=== PATIENT | female | born 1940 | race Caucasian/White ===

== ENCOUNTER 2023-02-15 01:48 | Emergency (ER) | payer MEDICARE, SELFPAY ==
[2023-02-15 01:53] VITALS: BP 138/76; PULSE 64; RESP 18; TEMP 36.4; O2SAT 97; BMI 25.9
[2023-02-15 02:14] LABS: Basophils Percent Auto 0.4 % (0.2-2.0); Eosinophils Percent Auto 0.1 % (0.9-7.0); Hematocrit 45.2 % (36.0-48.0); Hemoglobin 14.7 g/dL (12.0-16.0); Immature Granulocytes Abs Auto 0.04 10^3/uL (0.00-0.03); Immature Granulocytes Pct Auto 0.4 % (0.0-0.5); Lymphocytes Absolute Auto 1.7 10^3/uL (1.2-3.8); Lymphocytes Percent Auto 16.7 % (20.5-60.0); Mean Corpuscular HGB Conc 32.5 g/dL (29.9-35.2); Mean Corpuscular Hemoglobin 29.5 pg (26.7-34.0); Mean Corpuscular Volume 90.6 fL (81.0-99.0); Monocytes Absolute Auto 0.5 10^3/uL (0.3-0.8); Monocytes Percent Auto 4.6 % (1.7-12.0); Neutrophils Absolute Auto 7.8 10^3/uL (1.4-6.5); Neutrophils Percent Auto 77.8 % (43.0-75.0); Platelet Count 344 10^3/uL (150-450); Red Blood Count 4.99 10^6/uL (4.20-5.40); Red Cell Distribution Width 12.4 % (11.0-15.0)
[2023-02-15 02:23] LABS: Anion Gap 12.4; BUN Creatinine Ratio 18.4; Carbon Dioxide 25.2 mmol/L (21.0-32.0); Chloride 101 mmol/L (98-107); Estimated GFR (African America 56 (>=60); Estimated GFR (Non-African Ame 46 (>=60); Glucose 126 mg/dL (74-106); Potassium 3.6 mmol/L (3.5-5.1); Sodium 135 mmol/L (136-145)
--- NOTE | 2023-02-15 02:29 | CT_ITS ---
The [address] [address] Patient Name: DHEERAJ HERNANDEZ MRN: [id number] date: 1940 Sex: F Assigned Patient Location: ER Current Patient Location: ER Accession/Order Number: [id number] Exam Date: 02/15/2023 02:50 Report Date: 02/15/2023 03:45 At the request of: VANESSA MALIK Procedure: CT lumbar spine wo con EXAM: CT lumbar spine wo con HISTORY: back pain COMPARISON: None. TECHNIQUE: CT of the lumbar spine without IV contrast. FINDINGS: Mild dextroconvex curvature of the lumbar spine. Osteopenic bone density. There is an acute appearing superior endplate compression fracture of the L1 vertebral body with sclerosis noted along the superior endplate and slight wedging of the anterior and posterior vertebral cortex with minimal bony retropulsion. There is approximately 35% loss of height centrally. The remainder of the vertebral body heights are grossly preserved. Posterior elements are intact. Prevertebral soft tissues appear unremarkable. No significant disc herniations/bulges are visualized within the lumbar spine, no evidence for high-grade central canal narrowing. Multilevel facet arthrosis most significant at the L4-L5 and L5-S1 levels. There is mild to moderate bilateral neuroforaminal narrowing at L4-L5. Moderate to severe right and [id number] left neuroforaminal narrowing at L5-S1 CT/CT lumbar spine wo con IMPRESSION: 1. Acute appearing superior endplate compression fracture of the L1 vertebral body with minimal bony retropulsion and approximately 35% loss of height centrally. Electronically authenticated by: FRANTZ UGARTE Date: 02/15/2023 03:45
--- NOTE | 2023-02-15 02:29 | CT_ITS ---
The [facility] [address], [place] [address] Patient Name: DHEERAJ HERNANDEZ MRN: [id number] date: 1940 Sex: F Assigned Patient Location: ER Current Patient Location: Accession/Order Number: [id number] Exam Date: 02/15/2023 02:50 Report Date: 02/15/2023 03:47 At the request of: VANESSA MALIK Procedure: CT abdomen pelvis w con EXAM: CT abdomen pelvis w con HISTORY: left sided flank pain . Left lower back pain and nausea. COMPARISON: CT lumbar spine, 02/15/2023. TECHNIQUE: IV contrast enhanced CT imaging of the abdomen and pelvis was performed using 100 mL of Omnipaque 300 intravenous contrast. Sagittal and coronal reconstructions are provided. Dose reduction techniques were achieved by using automated exposure control and/or adjustment of mA and/or kV according to patient size and/or use of iterative reconstruction technique. FINDINGS: CT ABDOMEN: There is left basilar linear fibrotic scarring. The lung bases are otherwise clear. A trace inferior pericardial effusion is noted. Cardiac size is normal. The liver, gallbladder, pancreas, spleen, and adrenal glands are unremarkable. Bilateral renal peripelvic cysts are present with several small right renal cortical cysts. The kidneys are otherwise unremarkable. The aorta and IVC appear normal. There is a small hiatal hernia. The stomach and small bowel are otherwise unremarkable. There is a small fat-containing umbilical hernia. CT PELVIS: The appendix, pelvic small bowel bowel loops, colon, uterus and decompressed urinary bladder appear unremarkable. No inflammatory fat stranding, free fluid, loculated fluid or free air is seen in the abdomen or pelvis. A mild anterior compression fracture involving the superior endplate of L1 has smooth borders and appears chronic. There is a mild lumbar levoscoliosis. No acute osseous abnormality or suspicious bony lesion is seen. CT/CT abdomen pelvis w con IMPRESSION: No acute findings in the abdomen or pelvis. No specific cause of left-sided flank pain is identified. Please reference today's CT lumbar spine report regarding spinal findings. Electronically authenticated by: DEREK BURGOS Date: 02/15/2023 03:47
[2023-02-15 02:46] LABS: Bilirubin Urine MODERATE (NEGATIVE); Blood Urine TRACE-I (NEGATIVE); Clarity Urine CLEAR (CLEAR); Color Urine DK. YELLOW (YELLOW); Glucose Urine UA NEGATIVE (NEGATIVE); Ketones Urine 15 mg/dL (NEGATIVE); Leukocyte Esterase Urine SMALL (NEGATIVE); Nitrite Urine NEGATIVE (NEGATIVE); Protein Urine 30 mg/dL (NEG/TRACE); Specific Gravity Urine >=1.030 (1.005-1.025); pH Urine 5.5 (5.0-9.0)
[2023-02-15 02:52] LABS: Urine Microscopic Indicated YES
[2023-02-15 02:55] LABS: Bacteria Urine MODERATE #/HPF (NONE SEEN); Cast Seen? NONE SEEN #/LPF (NONE SEEN); Crystals Seen? None Seen #/HPF (None Seen); Mucus Urine SMALL (NONE SEEN); RBC Urine 0-2 #/HPF (0-2); Squamous Epithelial Cell Urine MODERATE #/LPF (NONE/RARE); Urine Culture Indicated YES
--- NOTE | 2023-02-15 02:55 | ED_ITS ---
HPI - General Adult General Chief complaint: Back Pain/Injury Stated complaint: BACK PAIN Time Seen by Provider: 02/15/23 01:57 EST Source: patient Mode of arrival: walk-in Limitations: no limitations History of Present Illness HPI narrative: 82-year-old female emergency department with chief complaint of back pain. Patient reports for the last several days and left side lower back pain. She is unsure exactly what she was doing when it started. There is no injury. No falls. She has never had pain in this region before. Patient reports that she saw her primary care doctor prescribed a steroid pack and told to take naproxen. She reports that the pain worsened prompting her to call back and she was prescribed baclofen which also has not helped. She denies any rash. She denies any fever, sweats, chills. She denies any abdominal pain, nausea, vomiting, diarrhea, blood in the stool. She denies any dysuria, urgency, frequency, hematuria. Related Data Home Medications Medication Instructions Recorded Confirmed baclofen 10 mg tablet 10 mg PO TID 02/15/23 02/15/23 methylprednisolone 4 mg tablets in 4 mg PO DAILY 02/15/23 02/15/23 a dose pack ondansetron HCl 4 mg tablet 4 mg PO DAILY 02/15/23 02/15/23 Previous Rx's Medication Instructions Recorded hydrocodone 5 mg-acetaminophen 325 1 tab PO Q6H PRN pain 3 days #12 02/15/23 mg tablet tabs Allergies Allergy/AdvReac Type Severity Reaction Status Date / Time No Known Drug Allergies Allergy Verified 02/15/23 01:57 EST Review of Systems ROS Status of ROS 10 or more systems reviewed and unremarkable except as noted in history and below Exam Narrative Exam Narrative: VITALS: I have reviewed the triage vital signs. GENERAL: Well developed, well appearing adult in no acute distress. NEURO: Alert and oriented. Moves all extremities. Face is symmetric and expressive. Patellar reflexes brisk and equal bilaterally. Normal gait. Plantar flexion/dorsiflexion, knee flexion/extension, hip flexion/extension are grossly intact with 5/5 strength. Sensation is intact across the bilateral lower extremities. SPINE: No midline cervical, thoracic, or lumbar tenderness. No step-off or deformities. No paraspinal muscle tenderness or increased tone. EYES: PERRL. No scleral icterus or conjunctival injection. No discharge. HENT: Normocephalic, atraumatic. Hearing is grossly intact. Nares grossly patent and without discharge. Mucous membranes moist. NECK: No JVD. Patient moves neck without restriction. CARDIO: Rhythm regular. Normal rate. No murmur, rub, or gallop. Pulses equal bilaterally in the upper and lower extremity. No lower extremity edema. PULM: Lungs clear to auscultation in all govea. No wheezes, rales, or rhonchi. No conversational dyspnea. No splinting, stridor, or accessory muscle use. GI/: Abdomen is soft and non-tender. Normoactive bowel sounds. No flank tenderness. EXTREMITIES: Symmetric muscle bulk. No joint swelling. No clubbing, cyanosis, or deformity. SKIN: Warm and dry. Normal turgor. No rash or lesions appreciated. PSYCH: Mood, affect, and interaction is appropriate to the setting. Constitutional Vital Signs, click to edit/add: Last Vital Signs Temp 97.6 F 02/15/23 01:53 EST Pulse 64 02/15/23 01:53 EST Resp 18 02/15/23 01:53 EST BP 138/76 02/15/23 01:53 EST Pulse Ox 97 02/15/23 01:53 EST O2 Del Method Room Air 02/15/23 01:53 EST Course Vital Signs Vital signs: Vital Signs Temperature 97.6 F 02/15/23 01:53 EST Pulse Rate 64 02/15/23 01:53 EST Respiratory Rate 18 02/15/23 01:53 EST Blood Pressure 138/76 02/15/23 01:53 EST Pulse Oximetry 97 02/15/23 01:53 EST Oxygen Delivery Method Room Air 02/15/23 01:53 EST Temperature 97.6 F 02/15/23 01:53 EST Pulse Rate 64 02/15/23 01:53 EST Respiratory Rate 18 02/15/23 01:53 EST Blood Pressure 138/76 02/15/23 01:53 EST Pulse Oximetry 97 02/15/23 01:53 EST Oxygen Delivery Method Room Air 02/15/23 01:53 EST Medical Decision Making MDM Narrative Medical decision making narrative: 82-year-old female to the emergency Department chief complaint of several days of left-sided lower back pain. Vital stable, patient is afebrile. Neurologic examination is nonfocal. No red flags for cord compressing lesion. She does report the pain is worse when she moves , however the pain is not easily diagnosed by history and physical exam alone. Given lack of response to conservative therapy will proceed with CT imaging of the spine/abdomen. Urinalysis, basic labs. Patient agrees with this plan. She declines any pain medication. Lab work unremarkable. UA not consistent with UTI. CT scan shows L1 mild compression fracture without retropulsion. She is neuro-intact. Minimal symptoms. She can ambulate and care for herself. No indication for emergent spine surgery consult. Findings discussed with patient which I think explain her symptoms well. Irving to go and script. Follow-up with NSG. Follow-up with PCP. Return precautions were discussed, all questions were answered, the patient was discharged home. Medical Records Medical records reviewed: Yes I reviewed the patient's medical records Lab Data Lab results reviewed: Yes I reviewed the patient's lab results Labs: Lab Results 02/15/23 02/15/23 Range/Units 02:08 02:39 WBC 10.0 (4.0-11.0) 10^3/uL RBC 4.99 (4.20-5.40) 10^6/uL Hgb 14.7 (12.0-16.0) g/dL Hct 45.2 (36.0-48.0) % MCV 90.6 (81.0-99.0) fL MCH 29.5 (26.7-34.0) pg MCHC 32.5 (29.9-35.2) g/dL RDW 12.4 (11.0-15.0) % Plt Count 344 (150-450) 10^3/uL MPV 10.0 (9.5-13.5) fL Neut % (Auto) 77.8 H (43.0-75.0) % Lymph % (Auto) 16.7 L (20.5-60.0) % [place] % (Auto) 4.6 (1.7-12.0) % Eos % (Auto) 0.1 L (0.9-7.0) % Baso % (Auto) 0.4 (0.2-2.0) % Neut # (Auto) 7.8 H (1.4-6.5) 10^3/uL Lymph # (Auto) 1.7 (1.2-3.8) 10^3/uL [place] # (Auto) 0.5 (0.3-0.8) 10^3/uL Eos # (Auto) 0.0 (0.0-0.7) 10^3/uL Baso # (Auto) 0.0 (0.0-0.1) 10^3/uL Abs Immat Gran (auto) 0.04 H (0.00-0.03) 10^3/uL Imm/Tot Granulo (auto) 0.4 (0.0-0.5) % Sodium 135 L (136-145) mmol/L Potassium 3.6 (3.5-5.1) mmol/L Chloride 101 (98-107) mmol/L Carbon Dioxide 25.2 (21.0-32.0) mmol/L Anion Gap 12.4 BUN 21.0 H (7.0-18.0) mg/dL Creatinine 1.14 H (0.55-1.02) mg/dL Est GFR ( Amer) 56 L (>=60) Est GFR (Non-Af Amer) 46 L (>=60) BUN/Creatinine Ratio 18.4 Glucose 126 H (74-106) mg/dL Calcium 9.0 (8.5-10.1) mg/dL Urine Color Dk. yellow (YELLOW) Urine Clarity Clear (CLEAR) Urine pH 5.5 (5.0-9.0) Ur Specific Mackey >=1.030 A (1.005-1.025) Urine Protein 30 A (NEG/TRACE) mg/dL Urine Glucose (UA) Negative (NEGATIVE) mg/dL Urine Ketones 15 A (NEGATIVE) mg/dL Urine Occult Blood Trace-i (NEGATIVE) Urine Nitrite Negative (NEGATIVE) Urine Bilirubin Moderate A (NEGATIVE) Urine Urobilinogen 1.0 (0.2-1.0) EU/dL Ur Leukocyte Esterase Small A (NEGATIVE) Urine RBC 0-2 (0-2) #/HPF Urine WBC 5-10 A (NONE SEEN) #/HPF Ur Squamous Epith Cells Moderate A (NONE/RARE) #/LPF Urine Crystals None seen (None Seen) #/HPF Urine Bacteria Moderate A (NONE SEEN) #/HPF Urine Casts None seen (NONE SEEN) #/LPF Urine Mucus Small A (NONE SEEN) Ur Culture Indicated? Yes Imaging Data CT scan - abdomen: Attestation: I have reviewed the pertinent imaging results. Discharge Plan Discharge Chief Complaint: Back Pain/Injury Clinical Impression: Compression fracture Patient Disposition: Home, Self-Care Time of Disposition Decision: 04:06 Condition: Good Mode of Transportation: Private Vehicle Prescriptions / Home Meds: New hydrocodone-acetaminophen 5-325 mg tablet 1 tab PO Q6H PRN (Reason: pain) 3 Days Qty: 12 0RF No Action baclofen 10 mg tablet 10 mg PO TID methylprednisolone 4 mg tablets,dose pack 4 mg PO DAILY ondansetron HCl 4 mg tablet 4 mg PO DAILY Print Language: Hungarian Instructions: Vertebral Compression Fracture (ED) Stand Alone Forms: Portal Instructions Referrals: ABISAI CHRISTIE [Primary Care Provider] - 02/18/23 SUMMER STARKS [Physician] - 1 week (Follow-up to discuss fracture. )
[2023-02-15] MEDS: HYDROCODONE/ACET 5-325 MG TABLET 1 TAB PO (04:15)
== END 2023-02-15 04:33 | disposition home or self-care (01) ==
PROVIDERS: Emergency Provider Student in an Organized Health Care Education/Training Program; PCP Internal Medicine
DX: M48.56XA Collapsed vertebra, not elsewhere classified, lumbar region, initial encounter for fracture (principal); Z79.899 Other long term (current) drug therapy
CPT/HCPCS: 36415; 72131; 74177; 80048; 81001; 85025; 87086; 99285; Q9967

== ENCOUNTER 2023-03-02 07:55 | Outpatient (OUT) | payer MEDICARE, SELFPAY ==
--- NOTE | 2023-03-02 08:00 | NM_ITS ---
The [address] [address] Patient Name: DHEERAJ HERNANDEZ MRN: [id number] date: 1940 Sex: F Assigned Patient Location: [place] Current Patient Location: [place] Accession/Order Number: [id number] Exam Date: 03/02/2023 08:00 Report Date: 03/02/2023 13:20 At the request of: CARLOTA RUANO Procedure: SC bone scan whole body EXAMINATION: SC bone scan whole body HISTORY: LUMBAR PAIN COMPARISON: CT lumbar spine 02/15/2023 TECHNIQUE: After obtaining the patient's consent, 26.2 mCi Technetium 99m MDP was injected intravenously. Images were obtained approximately two hours later. FINDINGS: ABNORMALITIES: Intense band of abnormal activity over approximately L1 vertebral body consistent with suspected superior and plate compression fracture and prior CT study. OTHER: Negative. SC/SC bone scan whole body IMPRESSION: 1. Findings compatible with acute L1 superior endplate fracture. Electronically authenticated by: KATLYN PRICE Date: 03/02/2023 13:20
== END 2023-03-02 07:56 | disposition home or self-care (01) ==
LOC: NM 07:55
PROVIDERS: PCP Internal Medicine; Visit Provider Nurse Practitioner Family
DX: M54.50 Low back pain, unspecified (principal); S32.010A Wedge compression fracture of first lumbar vertebra, initial encounter for closed fracture
CPT/HCPCS: 78306; A9503

== ENCOUNTER 2023-07-10 11:14 | Outpatient (OUT) | payer MEDICARE, SELFPAY ==
--- NOTE | 2023-07-10 11:17 | MM_ITS ---
Patient Name: DHEERAJ HERNANDEZ MR#: [id number] : 1940 Exam Date: 07/10/2023 Ordering Doctor: DR ABISAI CHRISTIE M.D. RADIOLOGY REPORT PROCEDURE: MM TOMOSYNTHESIS SCREENING BI COMPARISON: MG MAMM SCREEN 3D HELEN CAD, 01/30/2022. MG MAMM SCREEN 3D HELEN CAD, 11/14/2020. MG MAMM SCREEN HELEN W CAD, 06/22/2018. MG MAMM HELEN SCRN W CAD DIG, 08/03/2013. INDICATIONS: Screening Calculator Name NCI Breast Cancer Risk Assessment Tool 5 Year Breast Cancer Risk 2.00% Lifetime Breast Cancer Risk 3.10% Personal Breast Cancer No Personal Ovarian Cancer No Treatments None Family Cancers Father with kidney cancer at age 78. LOCATION: The [facility] BREAST COMPOSITION: Extremely dense, which lowers the sensitivity of mammography. FINDINGS: DIAGNOSTIC CATEGORY 2--BENIGN FINDING: RIGHT BREAST: No significant suspicious finding. Scattered benign-appearing calcifications are present. No significant change has occurred. LEFT BREAST: No significant suspicious finding. Scattered benign-appearing calcifications are present. No significant change has occurred. RECOMMENDATIONS: ROUTINE MAMMOGRAM AND CLINICAL EVALUATION IN 12 MONTHS. PLEASE NOTE: A NORMAL MAMMOGRAM DOES NOT EXCLUDE THE POSSIBILITY OF BREAST CANCER. A CLINICALLY SUSPICIOUS PALPABLE LUMP SHOULD BE BIOPSIED. Dictated by: Mook Contreras M.D. on 07/10/2023 at 15:18 Approved by: Mook Contreras M.D. on 07/10/2023 at 15:23
--- OUTSIDE RECORDS SUMMARY | 2023-07-10 11:28 | XMS_ITS | CCD ---
Author Organization [facility] Care Team Providers Care Cnc Operator Machinist Name Role Phone DR RAFA GUY Admitting Unavailable DR RAFA GUY Attending Unavailable DR RAFA GUY Primary Care Unavailable DR RAFA GUY Consulting Unavailable SOURAV, DR MARINA Forrest Consulting Unavailable Yaima Santiago Unavailable Yaima Santiago Attending Unavailable Yaima Santiago Admitting Unavailable Rafa Guy Primary Care Unavailable Allergies Allergy Classification Reported Allergen(s) Allergy Type Date of Onset Reaction(s) Facility (1 source) Sulfonamides (Antibiotic) Drug allergy (disorder) [facility] Repository Medications Current Medications Medication Drug Class(es) Dates Sig (Normalized) Sig (Original) acetaminophen 325 mg / HYDROcodone bitartrate 5 mg oral tablet (3 sources) Opioid Agonist take 1 tablet by mouth every six hours HYDROcodone-Acetam inophen 5-325 MG 1 tablet as needed Orally every 6 hrs Active citalopram 20 mg oral tablet (3 sources) Serotonin Reuptake Inhibitor take 1 tablet by mouth every twenty-four hours Citalopram Hydrobromide 20 MG 1 tablet Orally Once a day Active lidocaine 0.05 mg/mg medicated patch (3 sources) Antiarrhythmic, Amide Local Anesthetic Start: 02-18-2023 Lidocaine 5 % 1 patch remove after 12 hours Externally Once a day for Feb, Active Multivitamin preparation (3 sources) Multivitamin - a s directed Orally Active pravastatin sodium 80 mg oral tablet (3 sources) HMG-CoA Reductase Inhibitor take 1 tablet by mouth every twenty-four hours Pravastatin Sodium 80 MG 1 tablet Orally Once a day Active Problems Active Problems Problem Classification Problem Date Documented Da te Episodic/Chronic Other fractures (1 source) Wedge compression fracture of first lumbar vertebra, initial encounter for closed fracture Episodic Other fractures (1 source) Wedge compression fracture of first lumbar vertebra, sequela Episodic Other screening for suspected conditions (not mental disorders or infectious disease) (4 sources) Encounter for screening mammogram for malignant neoplasm of breast; Translations: [ENC SCR MAMMO MALIG NEOPLASM BREAST] Onset: 01-30-2022 Episodic Residual codes; unclassified (1 source) Family history of malignant neoplasm of kidney; Translations: [FAM HX MALIGNANT NEOPLASM KIDNEY] Onset: 02-03-2022 Episodic Spondylosis; intervertebral disc disorders; other back problems (5 sources) Inflammation of sacroiliac joint; Translations: [Sacroiliitis, not elsewhere classified] Chronic Unclassified (1 source) Wedge compression fracture of first lumbar vertebra, initial encounter for closed fracture; Translations: [Wedge compression fracture of first lumbar vertebra, initial encounter for closed fracture] Onset: 03-18-2023 Past or Other Problems Problem Classification Problem Date Documented Da te Episodic/Chronic Unclassified (2 sources) Lumbar pain M54.50 Results Test Name Value Interpretation Reference Range Facil ity XR lumbar spine AP/LAT/FLX/E XTon 03-18-2023 XR lumbar spine AP/LAT/FLX/EXT [place] [address] XRay Report Signed Patient: Lucinda Hernandez MR#: [id number] : 1940 Acct:[id number] Age/Sex: 82 / F ADM Date: 03/18/23 Loc: XD Room: Type: [facility] Attending Dr: Yaima JOHN Copies to: ALVARO Prado Ordering Provider: ALVARO Prado Date of Service: 03/18/23 XR/XR lumbar spine AP/LAT/FLX/EXT: S32.010A XR lumbar spine AP/LAT/FLX/EXT 03/18/2023 10:50 AM SIGNS AND SYMPTOMS: Low back pain, history of L1 compression fracture, follow-up PROTOCOLS: Frontal, lateral, and flexion-extension views of the lumbar spine COMPARISON: 02/15/2023 FINDINGS: There is redemonstration of a compression deformity of the superior endplate of the L1 vertebral body with anterior osteophyte formation. There is mild vertebral disc height loss at L2-L3, L3-L4, and L4-5. There is mild/moderate disc height loss at L5-S1. Facet degenerative changes are present in the lower lumbar spine. There is a slight levoconvex curvature. Degenerative changes are noted in the sacroiliac joints and hips bilaterally. Flexion and extension view show no pathologic movement. XR/XR lumbar spine AP/LAT/FLX/EXT IMPRESSION: Unchanged compression deformity of the superior endplate of L1. No acute displaced fracture noted otherwise. Similar degenerative changes are noted, greatest in the lower lumbar spine. No pathologic movement on flexion or extension. Impression dictated by: Jan Cadet M.D.03/18/2023 4:17 PM Dictation Location: [place] [address] Transcribed By: [facility] 03/18/231616 Dictated By: Jan Cadet II, MD 03/18/231613 Signed By: 03/18/231616 [facility] MG MAMM SCREEN 3D HELEN CADon 01-30-2022 MG MAMM SCREEN 3D HELEN CAD Patient: LUCINDA HERNANDEZ Exam Date: 01/30/2022 : 1940 Gender:F Ordering : DR RAFA GUY M.D. Admission #: [id number] Family : Order #: [id number] CLICK HERE TO VIEW EXAM RADIOLOGY REPORT PROCEDURE: MAMMOGRAM SCREENING 3D BILATERAL CAD COMPARISON: MG MAMM SCREEN 3D HELEN CAD, 11/14/2020. MG MAMM SCREEN HELEN W CAD, 06/22/2018. INDICATIONS: Screening mammography Calculator Name NCI Breast Cancer Risk Assessment Tool 5 Year Breast Cancer Risk 2.10% Lifetime Breast Cancer Risk 3.50% Personal Breast Cancer No Personal Ovarian Cancer No Treatments None Family Cancers Father with kidney cancer at age 78. LOCATION: [facility] BREAST COMPOSITION: Extremely dense, which lowers the sensitivity of mammography. FINDINGS: DIAGNOSTIC CATEGORY 2--BENIGN FINDING. NO CHANGE FROM COMPARISON. Scattered benign-appearing calcifications are present. Scattered benign-appearing nodules are present. RIGHT BREAST: No significant suspicious finding. LEFT BREAST: No significant suspicious finding. RECOMMENDATIONS: ROUTINE MAMMOGRAM AND CLINICAL EVALUATION IN 12 MONTHS. PLEASE NOTE: A NORMAL MAMMOGRAM DOES NOT EXCLUDE THE POSSIBILITY OF BREAST CANCER. A CLINICALLY SUSPICIOUS PALPABLE LUMP SHOULD BE BIOPSIED. Dictated by: Marina Bertrand MD on 01/30/2022 at 12:49 Approved by: Marina Bertrand MD on 01/30/2022 at 12:50 Normal [facility] Vital Signs Date Time Vital Sign Value Performing Clinician Faci lity 03-18-2023 10:40-0500 Body height 167.64 cm [facility] Other [facility] Other 03-18-2023 10:40-0500 Body mass index (BMI) [Ratio] 25.66 kg/m2 [facility] Other [facility] Other 03-18-2023 10:40-0500 Body weight 72.12 kg [facility] Other [facility] Other 02-18-2023 11:00-0500 Body height 167.64 cm [facility] Other [facility] Other 02-18-2023 11:00-0500 Body mass index (BMI) [Ratio] 25.66 kg/m2 [facility] Other [facility] Other 02-18-2023 11:00-0500 Body weight 72.12 kg [facility] Other [facility] Other Encounters Encounter Date Encounter Type Care Provider Facility Start: 03-18-2023 Office outpatient vi sit 15 minutes YaimaRetellity [facility] Start: 03-18-2023 End: 03-18-2023 ambulatory YaimaInnotrieve [facility] Other Start: 02-27-2023 End: 02-27-2023 ambulatory [facility] Other [facility] Other Start: 02-27-2023 Telephone encounter YaimaQR Artist [facility] Start: 02-18-2023 End: 02-18-2023 ambulatory YaimaInnotrieve Other [facility] Other Start: 02-18-2023 Office outpatient ne w 45 minutes Yaima LIMA [facility] Start: 01-30-2022 End: 01-31-[address] RAFA GUY Facility:[facility] Payers Date Payer Category Payer Self-pay 1957 Private Health Insurance 101 [id number] 1940 Unknown [id number] Unknown [id number] Social History Date Type Detail Facility Sex Assigned At [facility] Other Evaluation note 03-18-2023 Note Date & Type Note Facility 03-18-2023 Evaluation note Encounter Date Diagnosis Assessment Notes Mar, Compression fracture of L1 vertebra, sequela (ICD-10 - S32.010S) I reviewed the bone scan from 03/02/2023 and the x-ray lumbar spine from 03/18/2023 and which shows a stable L1 superior endplate compression fracture. Patient has improved with overall symptoms and has minimal pain at this time advised to continue with lidocaine patches and ThermaCare as needed. Advised to continue wearing the brace for 4 more weeks. Follow-up as needed or if pain worsens. ded. Advised to continue wearing the brace for 4 more weeks. Follow-up as needed or if pain worsens. Mar, Sacroiliac inflammation (ICD-10 - M46.1) [facility] Other Evaluation note 02-27-2023 Note Date & Type Note Facility 02-27-2023 Evaluation note Encounter Date Diagnosis Assessment Notes Feb, Lumbar pain (ICD-10 - M54.50) [facility] Other Evaluation note 02-18-2023 Note Date & Type Note Facility 02-18-2023 Evaluation note Encounter Date Diagnosis Assessment Notes Feb, Lumbar pain (ICD-10 - M54.50) [facility] Bone scan Xray Lumbar F/u 4 weeks Feb, Compression fracture of L1 vertebra, initial encounter (ICD-10 - S32.010A) I reviewed the CT of the lumbar spine from 02/15/2023 which shows acute appearing superior endplate compression fracture of the L1 vertebral body with minimal bony retropulsion with approximate 35% loss of height centrally the remainder of the vertebral body heights are grossly preserved posterior elements are intact no evidence of central canal narrowing. Multilevel facet arthrosis most significant at the L4-L5 and L5-S1 levels. There is mild to moderate bilateral neuroforaminal narrowing at the L4-5. Moderate to severe right and mild to moderate left neuroforaminal narrowing at the L5-S1. Discussion of conservative therapy in which will order a bone scan to rule out chronic versus acute. As patient denies any falls or known injury. We will order an x-ray of the lumbar for the follow-up visit in 4 weeks. Pharmacological management will continue with current medication as prescribed we will add lidocaine patch. Will order [facility]O order for ADL's, posture, maintaining spinal alignment while healing for 12 weeks. The brace is flexible, provides trunk support thoracic regional rigid posterior panel and soft anterior apron, extends from the sacral coccygeal junction and terminates just inferior to the scapular spine restriction gross trunk motion in the sagittal plane produces intracavitary pressure to reduce loads on the intervertebral discs, include straps and closures, prefabricated including fitting and adjustments. Will follow up in 4 weeks. Feb, Sacroiliac inflammation (ICD-10 - M46.1) [facility] Other Reason for referral (narrative) Note Date & Type Note Facility Reason for referral (narrati ve) Diagnosis 1 Lumbar pain (M54.50) Referral Organization [facility] Referring Provider First Name Yaima Referring Provider Last Name Pamela Referring Provider Specialty Nurse Pract itioner Referred Organization [facility] Referred Address [address] [place], [place],[address] Referred Provider Specialty DME Referral Priority Routine [facility] Other Summary Purpose Family History No Family History Records FoundNo Family History Records Found Advance Directives No Advanced Directives Records FoundNo Advanced Directives Records Found Additional Source Comments INFORMATION SOURCE (unrecogn ized section and content) DATE CREATED AUTHOR 02/03/2022 [facility] DATE CREATED AUTHOR AUTHOR'S ORGANIZ ATION 03/27/[address] [facility] REASON FOR VISIT (unrecogniz ed section and content) LOW BACK PAINNo Informationx ray/bone scan results FOR RECORDS PERTAINING TO PATIENTS WHO ARE OR HAVE BEEN ENROLLED IN A CHEMICAL DEPENDENCY/SUBSTANCEABUSE PROGRAM, SOME INFORMATION MAY BE OMITTED. This clinical summary was aggregated from multiple sources. Caution should be exercised in using it in the provision of clinical care. This summary normalizes information from multiple sources, and as a consequence, information in this document may materially change the coding, format and clinical context of patient data. In addition, data may be omitted in some cases. CLINICAL DECISIONS SHOULD BE BASED ON THE PRIMARY CLINICAL RECORDS. [employer] [facility]. provides no warranty or guarantee of the accuracy or completeness of information in this document.
== END 2023-07-10 11:15 | disposition home or self-care (01) ==
LOC: MAMMO 11:14
PROVIDERS: PCP Internal Medicine; Visit Provider Internal Medicine
DX: Z12.31 Encounter for screening mammogram for malignant neoplasm of breast (principal); Z80.51 Family history of malignant neoplasm of kidney
CPT/HCPCS: 77063; 77067

== ENCOUNTER 2024-08-09 10:24 | Outpatient (OUT) | payer MEDICARE, SELFPAY ==
--- NOTE | 2024-08-09 10:28 | MM_ITS ---
Patient Name: DHEERAJ HERNANDEZ MR#: [id number] : 1940 Exam Date: 08/09/2024 Ordering Doctor: DR ABISAI CHRISTIE M.D. RADIOLOGY REPORT PROCEDURE: MM TOMOSYNTHESIS SCREENING BI COMPARISON: MM TOMOSYNTHESIS SCREENING BI, 07/10/2023. MG MAMM SCREEN 3D HELEN CAD, 01/30/2022. MG MAMM SCREEN 3D HELEN CAD, 11/14/2020. MG MAMM HELEN SCRN W CAD DIG, 08/03/2013. INDICATIONS: Screening Calculator Name NCI Breast Cancer Risk Assessment Tool 5 Year Breast Cancer Risk 2.00% Lifetime Breast Cancer Risk 2.80% Personal Breast Cancer No Personal Ovarian Cancer No Treatments None Family Cancers Father with kidney cancer at age 78. LOCATION: [facility] BREAST COMPOSITION: The breasts are heterogeneously dense,which may obscure small masses. FINDINGS: DIAGNOSTIC CATEGORY 1--NEGATIVE. RIGHT BREAST: No significant suspicious finding. LEFT BREAST: No significant suspicious finding. RECOMMENDATIONS: ROUTINE MAMMOGRAM AND CLINICAL EVALUATION IN 12 MONTHS. PLEASE NOTE: A NORMAL MAMMOGRAM DOES NOT EXCLUDE THE POSSIBILITY OF BREAST CANCER. A CLINICALLY SUSPICIOUS PALPABLE LUMP SHOULD BE BIOPSIED. Dictated by: Herson Red DO on 08/09/2024 at 16:08 Approved by: Herson Red DO on 08/09/2024 at 16:10
== END 2024-08-09 10:25 | disposition home or self-care (01) ==
LOC: MAMMO 10:24
PROVIDERS: PCP Internal Medicine; Visit Provider Internal Medicine
DX: Z12.31 Encounter for screening mammogram for malignant neoplasm of breast (principal); Z80.51 Family history of malignant neoplasm of kidney
CPT/HCPCS: 77063; 77067